=== PATIENT | male | born 1955 | race Caucasian/White ===

== ENCOUNTER 2024-04-09 12:16 | Emergency (ER) | payer OTHER, SELFPAY ==
[2024-04-09 12:21] VITALS: BP 172/89
[2024-04-09 14:16] VITALS: BP 153/94
[2024-04-09 14:23] LABS: % Basophils 0.3 % (0-2); % Eosinophils 3.5 % (0-6); % Immature Granulocytes 0.5 % (0-0.5); % Lymphocytes 20.9 % (20.5-51.1); % Monocytes 7.2 % (1.7-9.3); % Neutrophils 67.6 % (42.2-75.2); Absolute Eosinophils 0.3 10^3/uL (0-0.7); Absolute Lymphocytes 1.6 10^3/uL (1.2-3.4); Absolute Monocytes 0.5 10^3/uL (0.1-0.6); Absolute Neutrophils 5.1 10^3/uL (1.4-6.5); Hematocrit 35.3 % (39.0-52.0); Hemoglobin 12.9 g/dL (13.0-18.0); Mean Corp Hgb Conc. 36.5 g/dL (33.0-37.0); Mean Corpuscular Hgb 27.9 pg (27.0-31.0); Mean Corpuscular Volume 76.4 fL (80.0-94.0); Mean Platelet Volume 8.9 fL (7.4-10.4); Nucleated Red Blood Cells % 0 % (-); Platelet Count 344 10^3/uL (130-400); Red Blood Cell Count 4.62 10^6/uL (4.70-6.10); Red Cell Dist. Width 13.1 % (11.5-14.5); White Blood Cell Count 7.5 10^3/uL (4.8-10.8)
[2024-04-09 14:41] LABS: ALT (SGPT) 21 U/L (0-50); AST (SGOT) 23 U/L (17-59); Albumin 3.9 g/dl (3.5-5.0); Alkaline Phosphatase 65 U/L (38-126); Blood Urea Nitrogen 9 mg/dl (9-20); Calcium 9.1 mg/dl (8.4-10.2); Carbon Dioxide 29 mmol/L (22-30); Chloride 103 mmol/L (98-107); Glucose 106 mg/dl (70-99); Magnesium 1.6 mg/dl (1.6-2.3); Potassium 3.7 mmol/L (3.5-5.1); Sodium 141 mmol/L (135-145); Total Bilirubin 0.6 mg/dl (0.2-1.3); Total Protein 6.6 g/dl (6.3-8.2); eGFR > 60.00
[2024-04-09 15:00] VITALS: BP 172/90
[2024-04-09] MEDS: NSS 1000 IV (15:08)
[2024-04-09 15:32] LABS: Lactic Acid 0.7 mmol/L (0.7-2.0)
[2024-04-09 17:45] VITALS: BP 180/95
--- NOTE | 2024-04-09 17:45 | ED.GENMED ---
History of Present Illness
General
Chief Complaint: Abdominal Symptoms
Source: patient
Exam Limitations: none
Time Seen by Provider: 04/09/24 14:07
Nursing documentation reviewed up to this point in time: agreed with
History of Present Illness
History of Present Illness:
69 y/o M with h/o HTN, NIDDM (metformin)
here with 2 weeks of diarrhea, approx 5 episodes a day usually at night
but in the past few days he has been having more episodes than that, like 10ish, and they are watery and foul smelling.
then he has hd some belching and his burps smell foul
he has not had any abdominal pain, bloody stool, vomiting, fever, abdminal distension
no recent abx, no recent travel
also has mild diarrhea
when he eats, he has more episodes
lack of appetite
pt's says he seems less like himself, dehydrated and weak/tired
didn't take his bp meds today
Past History
Past History
ED Past Medical History: HTN and NIDDM
Social History
Tobacco: Non-smoker
Alcohol: Occasional
Drug: None
Personal:
Living: with family
Review of Systems
Review of Systems
Allergies reviewed?: Yes
All Other Systems: Not applicable
Phy Exam
Physical Exam
Physical Exam:
GENERAL: Alert , in no apparent distress
EYE: pupils equal and reactive
NECK: Supple
ENT: o/p clr, minimally dry mucous membranes
CARDIAC: Regular rate and rhythm .
LUNGS: Clear breath sounds bilaterally, no acute respiratory distress, no wheezes/rales/rhonchi
ABDOMEN: Soft, without focal tenderness, no r/g, no cvat, normal bowel sounds
NEUROLOGICAL: Alert and oriented, no focal neuro deficits
SKIN: Warm and dry, skin intact.
MUSCULOSKELETAL: No edema, well perfused. neg gretta's sign
PSYCH: Normal and appropriate interaction.
Course
Orders/Labs/Results
Orders:
Orders
04/09/24 14:13
Complete Blood Count/With Diff Urgent
Comprehensive Metabolic Panel Urgent
Lipase Urgent
Comment: ADD ON
Magnesium Urgent
04/09/24 14:48
CT Abd/Pel (IV only)-DH only Urgent
Comment:
Reason For Exam: severe diarrhea, belching smells foul
04/09/24 14:49
0.9% Sodium Chloride 1000 ml [Nss] 1,000 ml IV BOLUS
04/09/24 15:08
Lactic Acid Q4H
Comment: CANCEL 2nd LACTIC ACID IF 1st LACTIC ACID IS LESS THAN 2
04/09/24 17:47
Add On- LAB Urgent
Tests Added?: lipase
04/09/24 18:53
CDIFF [C difficile Antigen & Toxins] Urgent
MIHAELA Source: Feces/Stool
Specimen Description:
Date Specimen was Collected: 04/09/24
Time Specimen was Collected: 12:33
Stool Culture Urgent
MIHAELA Source: Feces/Stool
Specimen Description:
Date Specimen was Collected: 04/09/24
Time Specimen was Collected: 12:33
Abnormal Lab Results
04/09/24 04/09/24
14:13 18:45
RBC 4.62 L 10^6/uL
(4.70-6.10)
Hgb 12.9 L g/dL
(13.0-18.0)
Hct 35.3 L %
(39.0-52.0)
MCV 76.4 L fL
(80.0-94.0)
Glucose 106 H mg/dl
(70-99)
POC Glucose 130 H mg/dl
(70-99)
04/09/24 14:13
04/09/24 14:13
Vital Signs
Initial and Last Documented VS:
Initial Vital Signs
Temp Pulse Resp BP Pulse Ox
98.0 F 67 20 172/89 96
04/09/24 12:21 04/09/24 12:21 04/09/24 12:21 04/09/24 12:21 04/09/24 12:21
Last Documented Vital Signs
Temp Pulse Resp BP Pulse Ox
98.0 F 71 23 168/89 95
04/09/24 12:21 04/09/24 18:09 04/09/24 18:09 04/09/24 18:21 04/09/24 18:09
MDM/Problems Addressed
Differential Diagnosis Includes:
C. difficile, colitis, other infectious diarrhea, IBS
MDM/Problems Addressed:
69-year-old male with nhh-ejznwbo-[id number] diabetes on metformin presents for diarrhea for the past 2 weeks. Episodes have been increasing over the last day or 2 with a lack of appetite. He has not had any fever or vomiting. He has no abdominal
distention or abdominal pain. Sometimes episodes come on spontaneously and he cannot get to the bathroom in time. It is mostly watery but sometimes mushy. His burps have started to smell foul. He has no chest pain or shortness of breath. On
exam the patient looks very well, if at all minimally dehydrated it was very minimal. He has no abdominal tenderness or distention. Unfortunately he was unable to provide a stool sample and he will just prior to discharge which was sent off for C.
difficile and stool cultures.
His labs are otherwise unremarkable, his CT scan was also unremarkable. Incidental findings were discussed with him and a copy was given. Patient does feel well. He was able to eat while he was here. Discharge home pending follow-up for his
family doctor and GI. Also will need follow-up with regarding the stool results
*Critical Care Note
Total Time (30-74mins, 75-104mins- exclusive of procedures): Not Applicable
ED Attending Note
-
Portions of this chart may have been created with voice recognition software.� Occasional wrong word or��sound alike� substitutions may have occurred due to the inherent limitations of voice recognition software.
Discharge Plan
Departure
Patient Disposition: Home (Routine Discharge)
Date of Disposition: 04/09/24
Time of Disposition: 18:39
Patient with high blood pressure during this ER visit?: Yes
Condition: Fair
Covid-19: Not Applicable
Discharge Problem:
Diarrhea, Hypertension
Instructions: [place] Diet, Diarrhea, Adult ED
Referrals:
Malick Spivey, DO [Family Provider] - Follow up in 2-3 days
Activity Restrictions/Additional Instructions:
YOUR CAT SCAN DID NOT SHOW ANY CONCERNS LIKE INFECTIOUS COLITIS WOULD CAUSE
FOLLOW UP WITH YOUR FAMILY DOCTOR TO SEE IF THEY CAN COLLECT A SAMPLE TO TEST
MAKE SURE TO WIPE THE TOILET SEAT DOWN AND TRY NOT TO SHARE IF POSSIBLE
RETURN FOR: FEVER, VOMTING, BLOODY DIARRHEA, SEVERE PAIN OR ANY CONCERNS.
take a probiotic.
EAT A BLAND DIET (BANANAS RICE APPLESAUCE TOAST)
Interventions
Interventions:
*Risk Screen - Suicide Last Done: 04/09/24 13:25
*General Assessment Last Done: 04/09/24 14:21
*Neglect/Abuse Screening Last Done: 04/09/24 13:25
ED- Fall Risk Assessment Last Done: 04/09/24 19:05
*ED COVID-19 Vaccine History Last Done: 04/09/24 14:21
*Nursing Disposition Last Done: 04/09/24 19:05
[place]-Szcqto-Heetbiblzl Assessment Last Done: 04/09/24 14:20
Discharge Date and Time
Discharge Date/Time: 04/09/24 19:10
Print Language: KAZAKH
[2024-04-09 18:00] VITALS: BP 164/99
[2024-04-09 18:21] VITALS: BP 168/89
[2024-04-09 18:29] LABS: Lipase 236 U/L (23-300)
[2024-04-09 18:46] LABS: Glucose - Point of Care 130 mg/dl (70-99)
== END 2024-04-09 19:10 | disposition home or self-care (01) ==
LOC: EMR 12:16
PROVIDERS: Emergency Medicine; Physician Assistant; EMERGENCY PHYSICIAN Student in an Organized Health Care Education/Training Program; FAMILY PHYSICIAN Family Medicine
DX: R19.7 Diarrhea, unspecified (principal); I10 Essential (primary) hypertension; E11.9 Type 2 diabetes mellitus without complications; Z79.899 Other long term (current) drug therapy
CPT/HCPCS: 99284; 74177; 80053; 82962; 83605; 83690; 83735; 85025; 87045; 87046; 87324; 87427; 87449; Q9967

== ENCOUNTER 2025-03-28 01:06 | Emergency (ER) | payer OTHER, SELFPAY ==
[2025-03-28 01:12] VITALS: BP 180/92
[2025-03-28 01:35] LABS: Hematocrit 40.6 % (39.0-52.0); Hemoglobin 13.4 g/dL (13.0-18.0); Mean Corp Hgb Conc. 33.0 g/dL (33.0-37.0); Mean Corpuscular Volume 84.2 fL (80.0-94.0); Nucleated Red Blood Cells % 0 % (-); Platelet Count 220 10^3/uL (130-400); Red Cell Dist. Width 13.4 % (11.5-14.5)
[2025-03-28 01:59] LABS: ALT (SGPT) 42 U/L (0-50); AST (SGOT) 47 U/L (17-59); Albumin 4.1 g/dl (3.5-5.0); Alkaline Phosphatase 87 U/L (38-126); Blood Urea Nitrogen 22 mg/dl (9-20); Calcium 8.7 mg/dl (8.4-10.2); Carbon Dioxide 30 mmol/L (22-30); Chloride 105 mmol/L (98-107); Glucose 199 mg/dl (70-99); Potassium 4.9 mmol/L (3.5-5.1); Sodium 142 mmol/L (135-145); Total Protein 6.9 g/dl (6.3-8.2); eGFR > 60.00
[2025-03-28 04:37] VITALS: BP 187/110
[2025-03-28 04:42] VITALS: BMI 35.9
[2025-03-28 05:00] VITALS: BP 173/103
--- NOTE | 2025-03-28 05:01 | ED.GENMED ---
History of Present Illness
General
Chief Complaint: Breathing Problem
Source: patient and spouse
Time Seen by Provider: 03/28/25 04:46
History of Present Illness
History of Present Illness:
This patient is a 70-year-old male presents to the emergency department with reported 'mucus' production and rhinorrhea that started about 24 hours ago. He also notes that for about a week it feels like his left leg feels a little 'weird', possibly
swollen. 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 Tonight, he went to the bathroom and when he came back to bed he noticed he could not catch his breath which prompted his visit here.
He denies hemoptysis, fever, chills, nausea, vomiting, chest pain or pressure, back pain, neck pain, abdominal pain. He has an occasional cough. Patient was hospitalized for heart failure in the past with pleural effusion requiring drainage.
Patient is no longer dyspneic and feels well now.
Past History
Past History
ED Past Medical History: HTN, NIDDM and Other (Heart failure)
ED Past Surgical History: Other (Thumb reattachment, skin cancer)
Social History
Tobacco: Non-smoker
Alcohol: Occasional
Drug: None
Personal:
Living: with family
Employment: Employed
Phy Exam
Physical Exam
Physical Exam:
GENERAL: Alert , in no apparent distress, very pleasant, speaks in full sentences easily, watching TV
EYE: pupils equal and reactive
NECK: Supple, no significant adenopathy.
ENT: o/p clr, mmm.
CARDIAC: Regular rate and rhythm .
LUNGS: Equal breath sounds bilaterally, no acute respiratory distress, no rales or rhonchi, diffuse wheezing noted, no retractions, occasional nonproductive cough
ABDOMEN: Soft, without focal tenderness, no r/g, no cvat
NEUROLOGICAL: Alert and oriented, no focal neuro deficits
SKIN: Warm and dry, skin intact.
MUSCULOSKELETAL: No edema noted, negative Homans, well perfused.
PSYCH: Normal and appropriate interaction.
Course
Orders/Labs/Results
Orders:
Orders
03/28/25 01:16
Electrocardiogram (*1) Urgent
Reason for Study: Shortness of Breath
CR Chest - 2 Views Urgent
Comment:
Reason For Exam: SHORT OF BREATH
03/28/25 01:17
EKG- Treatment ONCE
03/28/25 01:24
BNP [NT-proBNP] Urgent
Complete Blood Count/With Diff Urgent
Comprehensive Metabolic Panel Urgent
Troponin I Urgent
Comment: ADD ON
03/28/25 04:46
COVID-19 Antigen Urgent
Source: Nasal Swab
Influenza A+B Rapid Molecular Urgent
MIHAELA Source: Nasal Swab
Specimen Description:
03/28/25 05:00
Ipratropium/Albuterol Sulfate [Duoneb] 3 ml INH R NOW ONE
US Periph Venous LOWER Ext LT Urgent
Comment:
Reason For Exam: swelling
03/28/25 05:04
Electrocardiogram (*1) Urgent
Reason for Study: Shortness of Breath
EKG- Treatment ONCE
03/28/25 05:48
Add On- LAB Urgent
Tests Added?: troponin
03/28/25 06:45
Doxycycline [Vibramycin] 100 mg PO NOW STA
Abnormal Lab Results
03/28/25
01:24
Absolute Neuts (auto) 7.5 H 10^3/uL
(1.4-6.5)
Absolute Lymphs (auto) 1.0 L 10^3/uL
(1.2-3.4)
Neutrophils % 79.3 H %
(42.2-75.2)
Lymphocytes % 10.7 L %
(20.5-51.1)
BUN 22 H mg/dl
(9-20)
Glucose 199 H mg/dl
(70-99)
03/28/25 01:24
03/28/25 01:24
Vital Signs
Initial and Last Documented VS:
Initial Vital Signs
Temp Pulse Resp BP Pulse Ox
98 F 98 24 180/92 92
03/28/25 01:12 03/28/25 01:12 03/28/25 01:12 03/28/25 01:12 03/28/25 01:12
Last Documented Vital Signs
Temp Pulse Resp BP Pulse Ox
98 F 82 19 173/103 88
03/28/25 01:12 03/28/25 06:30 03/28/25 06:30 03/28/25 05:00 03/28/25 06:30
*Pulse Oximetry
SaO2: 93
Oxygen Mode of Delivery: Room air
Update Note
Update Note:
Patient presents to the Emergency Department with _rhinorrhea and dyspnea
Number and Complexity of Problems Addressed at the Encounter
� Chronic conditions affecting care:
� Acute Exacerbation and/or Progression of Chronic Illness:
� Differential Diagnosis includes: Not limited to reactive airway disease, bronchitis, pneumonia, heart failure, ACS, PE, etc. etc.
Amount and/or Complexity of Data to be Reviewed and Analyzed
� I performed an independent evaluation of and my interpretation is:
EKG:read by me, nsr, lafb, no acute ischemia
CT:
Xrays:?left lower lobe small infiltrate, no pulm edema, no effusion
Laboratory Studies: generally unremarkable, bnp wnl, covid neg
Other:us rads read no dvt
� Review of other/old records reveals:
� Clinical information was obtained by an independent historian: who is at bedside
� Prescriptions/Medications Considered but not given:
� Further testing considered but not performed:
Risk of Complications and/or Morbidity or Mortality of Patient Management
� Social determinants of health affecting care:
� Discussion with other providers (PCP, Hospitalists, Consultants, etc):
� Escalation of care including admission/observation vs risk of discharge considered: Clinically doubt heart failure given BNP within normal limits, x-ray not convincing, patient denies orthopnea, etc.
6:44 AM reassessment patient resting comfortably, no dyspnea, no complaints at this time. Patient walked into emergency department and not noted to become hypoxic or develop symptoms. Stable for discharge with antibiotics, inhaler, and close
follow-up. Does not have findings to suggest acute cardiac events.
ED Attending Note
-
Portions of this chart may have been created with voice recognition software.� Occasional wrong word or��sound alike� substitutions may have occurred due to the inherent limitations of voice recognition software.
Discharge Plan
Departure
Patient Disposition: Home (Routine Discharge)
Date of Disposition: 03/28/25
Time of Disposition: 06:54
Patient with high blood pressure during this ER visit?: Yes
Condition: Good
Discharge Problem:
Pneumonia
Instructions: BLOOD PRESSURE, Pneumonia
Prescriptions:
New
doxycycline hyclate 100 mg capsule
100 mg PO BID Qty: 20 0RF
albuterol sulfate [Ventolin HFA] 90 mcg/actuation HFA aerosol inhaler
2 puff inhalation Q6H PRN (Reason: shortness of breath or wheezing) Qty: 8.5 0RF
No Action
Jardiance
glimepiride
losartan
Referrals:
Malick Spivey DO [Family Provider, Family Practice] - Follow up in 2-3 days
Activity Restrictions/Additional Instructions:
IF YOU DEVELOP ANY CHEST PAIN OR PRESSURE, RECURRENT SHORTNESS OF BREATH, FEVER, VOMITING, NEW LEG SWELLING, GET WORSE, DO NOT GET BETTER, OR OTHER WORRISOME SIGNS, PLEASE RETURN TO THE ER IMMEDIATELY!
Interventions
Interventions:
*Risk Screen - Suicide Last Done: 03/28/25 01:12
*General Assessment Last Done: 03/28/25 06:32
*Neglect/Abuse Screening Last Done: 03/28/25 01:12
*ED- Fall Risk Assessment Last Done: 03/28/25 06:32
*ED COVID-19 Vaccine History Last Done: 03/28/25 06:32
ED- Cardiac Assessment Last Done: 03/28/25 05:03
ED- Pulmonary Assessment Last Done: 03/28/25 05:03
Discharge Date and Time
Print Language: ROMANSH
[2025-03-28] MEDS: DUONEB 3 ML INH (05:10)
[2025-03-28 05:18] LABS: COVID-19 Antigen Negative (Negative)
[2025-03-28 06:32] LABS: Troponin I 0.027 ng/ml
[2025-03-28 06:38] VITALS: BP 158/84
[2025-03-28 07:00] VITALS: BP 150/89
[2025-03-28] MEDS: VIBRAMYCIN 100 MG PO (07:03)
== END 2025-03-28 07:07 | disposition home or self-care (01) ==
LOC: EMR 01:06
PROVIDERS: EMERGENCY PHYSICIAN Emergency Medicine; FAMILY PHYSICIAN Family Medicine
DX: J18.9 Pneumonia, unspecified organism (principal); E11.9 Type 2 diabetes mellitus without complications; I11.0 Hypertensive heart disease with heart failure; I50.9 Heart failure, unspecified; Z79.84 Long term (current) use of oral hypoglycemic drugs; Z85.828 Personal history of other malignant neoplasm of skin
CPT/HCPCS: 99284; 94640; 71046; 80053; 83880; 84484; 85025; 87502; 87811; 93005; 93971

== ENCOUNTER → 2025-05-16 16:27 | Outpatient (REF) | payer OTHER, SELFPAY | LOC: RAD 16:27 | PROVIDERS: ATTENDING PHYSICIAN Family Medicine | DX: E11.22 Type 2 diabetes mellitus with diabetic chronic kidney disease (principal); I11.9 Hypertensive heart disease without heart failure; R06.00 Dyspnea, unspecified | CPT/HCPCS: 71046 ==